=== PATIENT | female | born 1950 | race Hispanic/Latino ===

== ENCOUNTER 2020-10-31 05:51 | Day surgery (SDC) | payer MEDICARE ==
[2020-10-31 07:12] LABS: Basophils % (Auto) 0.8 % (0.0-1.8); Eosinophils # (Auto) 0.1 K/mm3 (0.0-0.4); Eosinophils % (Auto) 2.1 % (0.0-4.3); Hematocrit 38.5 % (30.3-42.9); Hemoglobin 13.7 gm/dl (10.1-14.3); Lymphocytes # (Auto) 1.4 K/mm3 (1.2-5.4); Mean Corpuscular HGB Conc 36 % (30-34); Mean Corpuscular Volume 96 fl (79-97); Monocytes # (Auto) 0.5 K/mm3 (0.0-0.8); Monocytes % (Auto) 8.9 % (0.0-7.3); Platelet Count 324 K/mm3 (140-440); Red Blood Count 4.04 M/mm3 (3.65-5.03); Red Cell Distribution Width 13.5 % (13.2-15.2)
[2020-10-31 07:22] LABS: Blood Urea Nitrogen 12 mg/dL (7-17); Calcium 9.6 mg/dL (8.4-10.2); Hemolysis Index 7
[2020-10-31 07:25] LABS: BUN/Creatinine Ratio 20; INR 0.95 (0.87-1.13)
[2020-10-31 07:26] LABS: Partial Thromboplastin Time 27.6 Sec. (24.2-36.6)
[2020-10-31] MEDS ORDERED: HEPARIN/NS 5000 UNIT/500ML 1,000 ML IR ONE (07:33)
[2020-10-31] MEDS ORDERED: NITROGLYCERIN SYRINGE 3 ML ONE (07:35)
[2020-10-31] MEDS: SODIUM CHLORIDE 0.9% 500 ML 500 ML IV SCH ×2 (07:44→08:48)
[2020-10-31] MEDS: fentaNYL 100 MCG/2 ML INJ ONE ×2 (08:44→08:50)
[2020-10-31] MEDS: LIDOCAINE (2%) 20 MG/1 ML VIAL 20 ML MDV INFILTRATI ONE ×2 (08:46→08:50)
[2020-10-31] MEDS: MIDAZOLAM 2 MG/2 ML INJ ONE ×2 (08:46→08:50)
[2020-10-31] MEDS: HEPARIN 10,000 UNITS/10 ML VIAL ONE ×2 (08:47→08:52)
[2020-10-31] MEDS: VERAPAMIL 5 MG/2 ML INJ ONE ×2 (08:47→08:52)
--- NOTE | 2020-10-31 10:18 | Cardiac Catherization Report ---
PERIPHERAL ANGIOGRAPHY REFERRING PHYSICIAN: Tenzin Bajwa MD INDICATION FOR PROCEDURE: The patient is a very pleasant 69-year-old female who presents with claudication, found to have bilateral peripheral vascular disease on ultrasound and ERINN, here for peripheral angiography. She does have claudication. She does smoke. Needs to quit smoking. Pletal has been initiated. Risks, benefits, alternatives discussed prior to obtaining informed consent. PROCEDURE IN DETAIL: The patient was brought to the dentures lab technician in a postabsorptive state, prepped and draped in sterile fashion. Left hand was normal. A 2 mL of 2% lidocaine used to anesthetize the left wrist. A standard 6-Setswana hydrophilic sheath used to cannulate the left radial artery via modified Seldinger technique. All exchanges performed to exchange a J-tip guidewire. With a pigtail catheter, abdominal aortography was performed with a power injector and DSA mode. Next, catheter was moved to the distal aorta. Distal aortography with computerized runoff to the feet is performed. Next, due to some ____ the left renal artery, third order selective left renal artery angiography was performed. This was performed with a JR4 catheter. Next, catheter removed from the body of wire, sheath removed. Manual pressure used to achieve hemostasis. There were no complications. DATA: Aortic pressure is 116/70. The patient remains in normal sinus rhythm throughout the procedure. I directly supervised the administration of moderate sedation with fentanyl and Versed from 8:50 a.m. to 9:15 a.m. Abdominal aorta reveals moderate diffuse aortic atheroma. No aneurysm. Right renal artery is widely patent. Left renal artery revealed overlap is not well visualized, but selective left renal angiography reveals 90% ostial stenosis. Bilateral common iliacs, external iliacs, common femorals are patent. Bilateral SFAs are occluded in the proximal segment and reconstitutes the distal SFA. Bilateral popliteals are patent. There is good 3-vessel infrapopliteal runoff bilaterally. CONCLUSIONS: 1. [id number] diffuse aortic atheroma without aneurysm. 2. A 90% proximal left renal artery stenosis, bilateral proximal SFA, occlusion reconstitution distal SFA, good 3-vessel runoff infrapopliteal bilaterally. At this point, continue Pletal. Watch for claudication. We will discuss options with her in the office. All results were discussed at length with the patient. All questions and concerns were addressed. Standard radial care. JOB# [id number] SBM/NTS
--- NOTE | 2020-10-31 11:01 | Short Stay Summary ---
Short Stay Documentation Date of service: 10/31/20 - History H&P: obtained from office - Allergies and Medications Current Medications: Allergies No Known Allergies Allergy (Verified 10/31/20 06:58) Home Medications Medication Instructions Recorded Confirmed Last Taken Type Albuterol Sulfate [Proair 90 mcg IH DAILY 10/31/20 10/31/20 10/30/20 History Respiclick] Amlodipine Besylate [Norvasc] 2.5 mg PO DAILY 10/31/20 10/31/20 10/31/20 History Escitalopram Oxalate [Lexapro] 20 mg PO DAILY 10/31/20 10/31/20 10/31/20 History Garlic [Odor Free Garlic] 100 mg PO DAILY 10/31/20 10/31/20 10/30/20 History Loratadine [Allergy Relief] 10 mg PO DAILY 10/31/20 10/31/20 10/30/20 History Multivit-Min/Iron/Folic Acid/K 1 each PO DAILY 10/31/20 10/31/20 10/30/20 History [Adults Multivitamin Tablet] Zolpidem [Ambien] 5 mg PO QHS PRN 10/31/20 10/31/20 10/30/20 History cilostazoL [Pletal] 50 mg PO BID 10/31/20 10/31/20 10/30/20 History lisinopriL [Zestril] 20 mg PO BID 10/31/20 10/31/20 10/31/20 History Active Medications Sodium Chloride (Nacl 0.9% 500 Ml) 500 mls @ 50 mls/hr IV DIRECT CELINE Last Admin: 10/31/20 08:48 Dose: 50 mls/hr Documented by: - Brief post op/procedure progress note Date of procedure: 10/31/20 Pre-op diagnosis: PVD Post-op diagnosis: same Procedure: peripheral angiogram - see dictated cath report Anesthesia: local Estimated blood loss: none Condition: stable - Disposition Condition at discharge: Good Disposition: [id number] TO HOME OR SELFCARE - Discharge Diagnoses (1) PVD (peripheral vascular disease) Status: Chronic (2) Tobacco use Status: Chronic Short Stay Discharge Plan Activity: advance as tolerated Diet: low fat, low cholesterol, low salt Wound: open to air, keep clean and dry, per your surgeon's advice Follow up with: CORINE ALLEN MD [Primary Care Provider] - 7 Days
[2020-10-31 12:44] VITALS: BP 133/73
== END 2020-10-31 05:52 | disposition home or self-care (01) ==
LOC: CATHLABREC 05:51
PROVIDERS: ATTEND Internal Medicine
DX: I70.213 Atherosclerosis of native arteries of extremities with intermittent claudication, bilateral legs (principal); I70.1 Atherosclerosis of renal artery; F17.210 Nicotine dependence, cigarettes, uncomplicated; J43.9 Emphysema, unspecified; I10 Essential (primary) hypertension; E04.1 Nontoxic single thyroid nodule; M19.90 Unspecified osteoarthritis, unspecified site; F32.9 Major depressive disorder, single episode, unspecified; I77.1 Stricture of artery; R68.89 Other general symptoms and signs; Z79.899 Other long term (current) drug therapy; Z90.710 Acquired absence of both cervix and uterus; Z98.890 Other specified postprocedural states; Z82.49 Family history of ischemic heart disease and other diseases of the circulatory system
CPT/HCPCS: 36253; 36415; 75625; 75716; 80048; 85025; 85610; 85730; 99156; 99157; C1769; C1894; J1644; J2250; J3010; J7040; 36251; Q9967